=== PATIENT | female | born 1930 | race African-American/Black ===

== ENCOUNTER 2017-07-28 15:41 | Inpatient (IN) | payer OTHER ==
[~2017-07-28] VITALS: Ht 162.6 cm; Wt 86.2 kg
--- NOTE | ~2017-07-28 | 2DMMODE ---
[facility] [address] [place] [address] 2 D/M-MODE ECHOCARDIOGRAM Name: LISSY CHANDLER Room #: 411-P ADM IN .R.#: [id number] Admission: 07/28/17 Attend Phys: En Townsend MD Discharge: Date of : 30 Date of Service: 08/04/17 1623 Report #: [id number] THIS REPORT FOR: //name// APPROVED REPORT Study performed: 08/04/2017 14:01:00 EXAM: Comprehensive 2D, Doppler, and color-flow Echocardiogram Patient Location: Bedside Room #: 411 Status: routine BSA: 1.91 HR: 88 bpm BP: 108/51 mmHg Other Information Study Quality: Fair Indications Arrhythmia Pulmonary Embolism Bradycardia 2D Dimensions LVEF(%): 47.39 (>50%) IVSd: 10.26 (7-11mm) LVOT Diam: 23.93 (18-24mm) LVDd: 50.58 mm PWd: 10.26 (7-11mm) Ascending Ao: 43.51 (22-36mm) LVDs: 38.50 (25-40mm) Aortic Root: 39.31 mm IVC: 19.00 mm Canela's LVEF: 47.39 % Aortic Valve AoV Peak Yogesh.: 1.02 m/s AO Peak Gr.: 4.20 mmHg LVOT Max P.45 mmHg LVOT Max V: 0.78 m/s CARLOS ALBERTO Vmax: 3.44 cm2 AI Vmax: 3.49 m/s AI [place]: 1.57 m/s2 AI PHT: 646.31 ms Pulmonary Valve PV Peak Yogesh.: 0.75 m/s PV Peak Gr.: 2.24 mmHg Tricuspid Valve [facility] [address] [place] [address] 2 D/M-MODE ECHOCARDIOGRAM Name: LISSY CHANDLER Room #: [address] [place] [address] [place] ..#: [id number] Admission: 07/28/17 Attend Phys: En Townsend MD Discharge: Date of : 30 Date of Service: 08/04/17 1623 Report #: [id number] TR Peak Yogesh.: 3.03 m/s TR Peak Gr.: 36.65 mmHg PA Pressure: 42.00 mmHg Left Ventricle The left ventricle is normal size. There is normal left ventricular wall thickness. Left ventricular systolic function is lower limits of normal. LVEF is 50%. This study is not technically sufficient to allow evaluation of the LV diastolic function. Right Ventricle Right ventricle is at the upper limits of normal. Right ventricle appears mildly hypokinetic. Atria The left atrium size is normal. Right atrium is at the upper limits of normal. Aortic Valve The aortic valve is normal in structure. Aortic valve is calcified. Mild aortic regurgitation. There is no aortic valvular stenosis. Mitral Valve The mitral valve is normal in structure. There is no mitral valve regurgitation noted. No evidence of mitral valve stenosis. Tricuspid Valve The tricuspid valve is normal in structure. There is trace tricuspid regurgitation. The right atrial pressure is estimated at mmHg. There is moderate pulmonary hypertension. Pulmonic Valve The pulmonary valve is normal in structure. There is no pulmonic valvular regurgitation. Great Vessels There is aortic root dilation. Measuring 3.9 cm The ascending aorta is dilated. Measuring 4.4 cm IVC is normal in size and collapses >50% with inspiration. Pericardium There is no pericardial effusion. <Conclusion> The left ventricle is normal size. [facility] [address] [place] [address] 2 D/M-MODE ECHOCARDIOGRAM Name: LISSY CHANDLER Room #: 411-P ADM IN M.R.#: [id number] Admission: 07/28/17 Attend Phys: En Townsend MD Discharge: Date of : 30 Date of Service: 08/04/17 1623 Report #: [id number] LVEF is 50%. Right ventricle is at the upper limits of normal. The aortic valve is normal in structure. Aortic valve is calcified. Mild aortic regurgitation. The mitral valve is normal in structure. The tricuspid valve is normal in structure. There is trace tricuspid regurgitation. The right atrial pressure is estimated at mmHg. There is moderate pulmonary hypertension. There is aortic root dilation. Measuring 3.9 cm The ascending aorta is dilated. Measuring 4.4 cm There is no pericardial effusion. <ELECTRONICALLY SIGNED> By: Duy Ahn MD 08/04/171622 22 22 Duy Ahn MD /INF
--- NOTE | ~2017-07-28 | HC ---
[facility] [place] [address] CONSULTATION Name: LISSY CHANDLER Room #: [facility] ADM IN M.R.#: [id number] Admission: 07/28/17 Attend Phys: En Townsend MD Discharge: Date of : 30 Report #: [id number] THIS REPORT FOR: //name// CC: En Townsend MD ____ ____ DATE OF SERVICE: 08/03/2017 REFERRING PROVIDER: En Townsend MD. REASON FOR CONSULTATION: Lung mass and pulmonary embolism. HISTORY OF PRESENT ILLNESS: Our group was asked to evaluate the patient in consultation while hospitalized at [facility] by Dr. Townsend. The patient is unable to give any history, somnolent, but arousable. Denies any pain or discomfort, but we were asked to evaluate for the above findings. The patient initially presented from her correction facility at [facility] for what appeared to be increasing weakness and falls. In the Emergency Department on admission here on 07/28/2017, was noted to have some rhabdomyolysis and urinary tract infection. This has been treated. Was also noted to be hypercalcemic during this hospital stay. Yesterday, he was noted to have some ongoing hypoxemia and subsequently underwent a CT scan of the chest, PE protocol, which revealed multiple pulmonary emboli and a 4-cm left upper lobe mass. We were asked to further evaluate. The patient unable to give any further history, but denies any chest pain or dyspnea at this time. No cough or congestion. No known history of pulmonary malignancy. The patient is unable to give any further history. Further history taken from discussion with nursing and review of records. ALLERGIES: INCLUDE ADHESIVE TAPE, CODEINE, PENICILLIN, PROCAINE, AND SULFA. OUTPATIENT MEDICATIONS: Included Aricept, folic acid, hydrochlorothiazide, Synthroid, Namenda, potassium, prednisolone eye drop, Zyprexa, latanoprost, Cosopt, brimonidine. PAST MEDICAL HISTORY: 1. Hypertension. 2. Osteoarthritis. 3. Glaucoma. 4. Legal blindness. 5. Dementia. 6. Depression. 7. Hypothyroidism. SOCIAL HISTORY: Currently lives in [facility]. Otherwise unobtainable. [facility] [address] [place] [address] CONSULTATION Name: LISSY CHANDLER Room #: [address] [place] [address] [facility].#: [id number] Admission: 07/28/17 Attend Phys: En Townsend MD Discharge: Date of : 30 Report #: [id number] FAMILY HISTORY: Unobtainable due to her current status. REVIEW OF SYSTEMS: Except as described in HPI, really cannot obtain from the patient at this time. PHYSICAL EXAMINATION: VITAL SIGNS: Afebrile, pulse 50s, respiratory rate 20, blood pressure 102/63, oxygen saturation 99% on 2 liters nasal cannula. GENERAL: This is an obese, elderly female, somnolent, but arousable, no distress. ENT: Unable to assess. The patient is not cooperative with opening mouth. NECK: Supple, no lymphadenopathy. LUNGS: Essentially clear, but diminished. CARDIOVASCULAR: Heart regular. No murmurs appreciated. ABDOMEN: Soft, nontender, no masses, no hepatosplenomegaly. EXTREMITIES: Without edema. LABORATORY DATA: CT scan of the chest as described in HPI. CBC within normal limits. Chemistry profile normal except for calcium of 10.4 and elevated ionized calcium is 6.5. CPK was normal on 07/30/2017. IMPRESSION: 1. Pulmonary embolism. Given the possibility of malignancy usually in the face of malignant process, would recommend enoxaparin long-term or use of a novel oral anticoagulant that is not warfarin, suggested Pradaxa. May consider further workup including lower extremity venous Dopplers. If anticoagulation is not a good option in this patient, could consider IVC filter. 2. Lung mass, worrisome for malignant process. Given the patient's hypercalcemia, would consider possibility of hypercalcemia associated with malignancy and consider tracking a parathyroid like hormone level. Also consider MRI of the brain that may further assist with evaluation prognosis. Oncology consultation noted. 3. Dementia. 4. General debilitation. 5. Hypercalcemia. 6. Urinary tract infection. SUGGESTIONS: As above. Continue Lovenox for now. We will check lower extremity venous Dopplers. Would not biopsy lesions further at this time, but will check an arterial blood gas to see if somnolence associated with hypercapnia. [facility] [address] [place] [address] CONSULTATION Name: LISSY CHANDLER Room #: 411-P ADM IN M.R.#: [id number] Admission: 07/28/17 Attend Phys: En Townsend MD Discharge: Date of : 30 Report #: [id number] Thank you for requesting our suggestions. By: [id number] Mitchell Neely MD /tricia
--- NOTE | ~2017-07-28 | EKG ---
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
[2017-07-28 15:42] VITALS: BP 128/89
[2017-07-28 16:13] LABS: HEMATOCRIT 49.3 % (37.0-47.0); HEMOGLOBIN 15.5 gm/dL (12.0-15.0); MCH 25.6 pg (26.0-34.0); MCHC 31.5 g/dL (28.0-37.0); MCV 81.3 fL (80.0-100.0); PLATELET COUNT 209 thou/uL (150-400); RBC 6.07 mil/uL (4.20-5.00); RDW 16.2 % (10.5-14.5); WBC 14.8 thou/uL (4.0-11.0)
[2017-07-28 16:14] LABS: MANUAL DIFF YES
[2017-07-28 16:26] LABS: CALCIUM 11.7 mg/dL (8.5-10.1); CREATININE 1.1 mg/dL (0.6-1.0); POTASSIUM 4.1 mmol/L (3.5-5.1)
[2017-07-28 17:17] LABS: URINE BILIRUBIN 1+ (Negative); URINE BLOOD 3+ (Negative); URINE COLOR YELLOW; URINE GLUCOSE-RANDOM* NEGATIVE (Negative); URINE KETONES TRACE (Negative); URINE NITRITE NEGATIVE (Negative); URINE PROTEIN (DIPSTICK) 3+ (Negative); URINE SPECIFIC GRAVITY >= 1.030 (1.003-1.035)
[2017-07-28 17:18] LABS: ABSOLUTE NEUTROPHILS 12.4 thou/uL (1.4-8.2); TOTAL CELL COUNT 100
[2017-07-28 17:19] LABS: ANISOCYTOSIS 1+
[2017-07-28 17:20] LABS: ICTOTEST (BILI CONFIRMATORY) Negative (Negative)
[2017-07-28 17:29] LABS: BACTERIA >30 Many /HPF (None Seen); CASTS None Seen /LPF (None Seen); CRYSTALS None Seen /LPF (None Seen); SQUAMOUS 0-3 Few /LPF (0-3); URINE RBC 0-2 Rare /HPF (0-2); URINE WBC 0-5 Rare /HPF (0-5)
[2017-07-28 19:50] VITALS: BP 127/71
[2017-07-29] MEDS ORDERED: ARICEPT10 M1 PO (00:31)
[2017-07-29] MEDS ORDERED: FOLIC ACID1 MG PO (01:29)
[2017-07-29] MEDS ORDERED: HYDROCHLOROTHIA25 M2 PO (01:31)
[2017-07-29] MEDS ORDERED: NAMENDA 10 MG T10 MG PO (01:32)
[2017-07-29] MEDS ORDERED: SYNTHROID50 MCG PO (01:32)
[2017-07-29] MEDS ORDERED: POTASSIUM20 PO (01:33)
[2017-07-29] MEDS ORDERED: ZYPREXA2.5 MG PO (01:35)
[2017-07-29] MEDS ORDERED: PRED FORTE 1% EY5 M1 OPHTHALMIC (01:37)
[2017-07-29] MEDS ORDERED: XALATAN2.5 ML OPHTHALMIC (01:38)
[2017-07-29] MEDS ORDERED: COSOPT OCUMETER10 M1 OPHTHALMIC (01:40)
[2017-07-29] MEDS ORDERED: ALPHAGAN P5 ML OPHTHALMIC (01:42)
[2017-07-29 03:59] VITALS: BP 125/71
[2017-07-29 07:20] VITALS: BP 113/59
[2017-07-29 16:18] VITALS: BP 130/57
[2017-07-29 20:45] VITALS: BP 125/67
[2017-07-30 05:35] VITALS: BP 140/75
[2017-07-30 08:00] VITALS: BP 124/83
[2017-07-30 16:36] VITALS: BP 126/78
[2017-07-30 16:48] LABS: HEMATOCRIT 39.7 % (37.0-47.0); MCH 25.9 pg (26.0-34.0); MCV 80.9 fL (80.0-100.0); RBC 4.91 mil/uL (4.20-5.00); RDW 15.9 % (10.5-14.5); WBC 8.2 thou/uL (4.0-11.0)
[2017-07-30 16:51] LABS: HEMOGLOBIN 12.7 gm/dL (12.0-15.0)
[2017-07-30 17:11] LABS: CALCIUM 10.3 mg/dL (8.5-10.1); CREATININE 0.9 mg/dL (0.6-1.0); POTASSIUM 4.3 mmol/L (3.5-5.1)
[2017-07-30 17:51] LABS: ALBUMIN 2.2 g/dL (3.4-5.0); DIRECT BILIRUBIN 0.2 mg/dL (<0.1-0.3); TOTAL BILIRUBIN 0.4 mg/dL (<0.1-1.0); TOTAL PROTEIN 6.1 g/dL (6.4-8.2)
[2017-07-30 21:02] VITALS: BP 142/76
[2017-07-31 04:10] VITALS: BP 147/90
[2017-07-31 09:03] VITALS: BP 170/82
[2017-07-31 10:16] LABS: CALCIUM 10.2 mg/dL (8.5-10.1); CREATININE 0.7 mg/dL (0.6-1.0); PHOSPHORUS 2.3 mg/dL (2.5-4.9)
[2017-07-31 16:00] VITALS: BP 126/69
[2017-07-31 16:12] LABS: IgA 432 mg/dL (64-422); IgG 1096 mg/dL (700-1600); IgM 64 mg/dL (26-217)
[2017-07-31 17:13] LABS: CALCIUM IONIZED* 6.5 mg/dL (4.5-5.6)
[2017-07-31 19:24] VITALS: BP 131/90
[2017-08-01 00:06] LABS: 25-HYDROXY TOTAL 14.7 ng/mL (30.0-100.0)
[2017-08-01 00:21] VITALS: BP 156/88
[2017-08-01 05:43] VITALS: BP 110/67
[2017-08-01 08:58] VITALS: BP 140/89
[2017-08-01 11:42] VITALS: BP 147/85
[2017-08-01 15:56] VITALS: BP 156/86
[2017-08-01 20:00] VITALS: BP 154/86
[2017-08-02 04:00] VITALS: BP 167/98
[2017-08-02 08:25] VITALS: BP 117/82
[2017-08-02 09:46] LABS: CALCIUM 10.4 mg/dL (8.5-10.1); CREATININE 0.8 mg/dL (0.6-1.0); POTASSIUM 3.9 mmol/L (3.5-5.1)
[2017-08-02] MEDS ORDERED: ROCEPHIN 11 GM/1001 IV (12:39)
[2017-08-02] MEDS ORDERED: TOPROL XL25 MG PO (12:40)
[2017-08-02] MEDS ORDERED: SENSIPAR 30 MG30 M1 PO (12:42)
[2017-08-02 16:21] VITALS: BP 118/84
[2017-08-02 20:05] VITALS: BP 100/39
[2017-08-02 20:30] VITALS: BP 123/80
[2017-08-03 05:30] VITALS: BP 102/63
[2017-08-03 08:00] VITALS: BP 102/66
[2017-08-03 08:14] LABS: A/G RATIO 0.7 (0.7-1.7); ALBUMIN 2.3 g/dL (2.9-4.4); ALPHA 1 0.3 g/dL (0.0-0.4); ALPHA 2 0.9 g/dL (0.4-1.0); BETA 1.1 g/dL (0.7-1.3); GAMMA 1.1 g/dL (0.4-1.8); M-SPIKE Not Observed g/dL (Not Observed)
[2017-08-03 14:15] LABS: KAPPA FREE LIGHT CHAINS 33.4 mg/L (3.3-19.4); KAPPA/LAMBDA RATIO 1.09 (0.26-1.65); LAMBDA FREE LIGHT CHAINS 30.7 mg/L (5.7-26.3)
[2017-08-03 16:09] LABS: UEP MONOCLONAL Not Observed % (Not Observed); URINE PROTEIN (MG/DL) 107.5 mg/dL (Not Estab.)
[2017-08-03 16:22] VITALS: BP 110/69
[2017-08-03 16:30] VITALS: BP 129/60
[2017-08-03 17:00] VITALS: BP 108/56
[2017-08-03 20:00] VITALS: BP 123/66
[2017-08-04 04:00] VITALS: BP 105/53
[2017-08-04 08:00] VITALS: BP 83/63
[2017-08-04 08:20] VITALS: BP 105/51
[2017-08-04 16:00] VITALS: BP 131/79
[2017-08-04 17:48] LABS: HEMATOCRIT 37.5 % (37.0-47.0); HEMOGLOBIN 11.7 gm/dL (12.0-15.0); MCH 25.2 pg (26.0-34.0); MCHC 31.3 g/dL (28.0-37.0); MCV 80.3 fL (80.0-100.0); RBC 4.66 mil/uL (4.20-5.00); RDW 16.1 % (10.5-14.5); WBC 6.2 thou/uL (4.0-11.0)
[2017-08-04 17:57] LABS: CALCIUM 10.6 mg/dL (8.5-10.1); CREATININE 0.8 mg/dL (0.6-1.0)
[2017-08-04 20:36] VITALS: BP 123/80
[2017-08-05 00:20] VITALS: BP 121/77
[2017-08-05 04:04] VITALS: BP 116/68
[2017-08-05 06:58] LABS: HEMATOCRIT 32.8 % (37.0-47.0); HEMOGLOBIN 10.4 gm/dL (12.0-15.0); MCH 25.5 pg (26.0-34.0); MCHC 31.8 g/dL (28.0-37.0); MCV 80.3 fL (80.0-100.0); RBC 4.08 mil/uL (4.20-5.00); RDW 15.7 % (10.5-14.5); WBC 5.7 thou/uL (4.0-11.0)
[2017-08-05 07:12] LABS: CALCIUM 9.2 mg/dL (8.5-10.1); CREATININE 0.7 mg/dL (0.6-1.0); TROPONIN-I 0.11 ng/mL (<0.04-0.07)
[2017-08-05 07:15] LABS: POTASSIUM 6.2 mmol/L (3.5-5.1)
[2017-08-05 08:33] VITALS: BP 150/86
[2017-08-05 15:41] VITALS: BP 138/81
[2017-08-05 20:00] VITALS: BP 155/78
[2017-08-06 04:00] VITALS: BP 153/70
[2017-08-06 08:08] LABS: CALCIUM 10.3 mg/dL (8.5-10.1); CREATININE 0.8 mg/dL (0.6-1.0); POTASSIUM 3.5 mmol/L (3.5-5.1)
[2017-08-06 08:22] VITALS: BP 111/58; BP 153/69
[2017-08-06 19:52] VITALS: BP 164/101
[2017-08-07 04:40] VITALS: BP 159/83
[2017-08-07] MEDS ORDERED: ANCEF 1GM1 GM/50 M2 IV (09:41)
[2017-08-07] MEDS ORDERED: ATIVAN0.5 MG PO (09:41)
[2017-08-07] MEDS ORDERED: ENOXAPARIN80 MG/0.1 SUBQ (09:41)
[2017-08-07] MEDS ORDERED: HYDROCODON-ACE1 EAC7 PO (09:41)
[2017-08-07] MEDS ORDERED: NORVASC2.5 MG PO (09:43)
[2017-08-07] MEDS ORDERED: PROBIOTIC1 EAC1 PO (09:49)
[2017-08-07 09:50] VITALS: BP 132/84
== END 2017-08-07 14:27 | DRG 871 ==
LOC: ER 15:41 → 4N 17:50 → EROBS 17:50 → 4N 19:49
PROVIDERS: Internal Medicine; Internal Medicine Hematology & Oncology; Physician Assistant
PROC: 02HV33Z Insertion of Infusion Device into Superior Vena Cava, Percutaneous Approach (ICD-10-PCS; principal; 2017-08-04)
DX: A41.1 Sepsis due to other specified staphylococcus (principal); E43 Unspecified severe protein-calorie malnutrition; I26.99 Other pulmonary embolism without acute cor pulmonale; J18.9 Pneumonia, unspecified organism; N39.0 Urinary tract infection, site not specified; F02.81 Dementia in other diseases classified elsewhere, unspecified severity, with behavioral disturbance; I10 Essential (primary) hypertension; M19.90 Unspecified osteoarthritis, unspecified site; H40.9 Unspecified glaucoma; H54.8 Legal blindness, as defined in USA; E03.9 Hypothyroidism, unspecified; F32.9 Major depressive disorder, single episode, unspecified; F29 Unspecified psychosis not due to a substance or known physiological condition; T79.6XXA Traumatic ischemia of muscle, initial encounter; W18.39XA Other fall on same level, initial encounter; G30.9 Alzheimer's disease, unspecified; E55.9 Vitamin D deficiency, unspecified; E21.3 Hyperparathyroidism, unspecified; E87.5 Hyperkalemia; I95.9 Hypotension, unspecified; Z28.21 Immunization not carried out because of patient refusal; Z88.6 Allergy status to analgesic agent; Z88.0 Allergy status to penicillin; Z88.2 Allergy status to sulfonamides; Z88.8 Allergy status to other drugs, medicaments and biological substances; Z91.09 Other allergy status, other than to drugs and biological substances; Z68.32 Body mass index [BMI] 32.0-32.9, adult
CPT/HCPCS: 10790; 27000

== ENCOUNTER → 2017-11-27 | Outpatient (CLI) | payer OTHER ==
[~2017-11-27] MED LIST: ALPHAGAN P5 ML OPHTHALMIC; ANCEF 1GM1 GM/50 M2 IV; ARICEPT10 M1 PO; ATIVAN0.5 MG PO; COSOPT OCUMETER10 M1 OPHTHALMIC; ENOXAPARIN80 MG/0.1 SUBQ; FOLIC ACID1 MG PO; HYDROCHLOROTHIA25 M2 PO; HYDROCODON-ACE1 EAC7 PO; NAMENDA 10 MG T10 MG PO; NORVASC2.5 MG PO; POTASSIUM20 PO; PRED FORTE 1% EY5 M1 OPHTHALMIC; PROBIOTIC1 EAC1 PO; ROCEPHIN 11 GM/1001 IV; SENSIPAR 30 MG30 M1 PO; SYNTHROID50 MCG PO; TOPROL XL25 MG PO; XALATAN2.5 ML OPHTHALMIC; ZYPREXA2.5 MG PO
== END ==
LOC: CAT 10:03
DX: I70.0 Atherosclerosis of aorta (principal); J98.11 Atelectasis; R91.8 Other nonspecific abnormal finding of lung field

== ENCOUNTER → 2017-12-25 | Outpatient (CLI) | payer OTHER ==
--- NOTE | ~2017-12-25 | S ---
[facility] [place] [place] [address] SURGICAL PATH RPT PROCEDURE Name: LISSY CHANDLER [id number] Admission: 12/25/17 Date of : 30 Discharge: Report #: [id number] Path Case #: [id number] PATHOLOGY REPORT COLLECTION DATE: 12/25/2017 RECEIVED DATE: 12/25/2017 SUBMITTING PHYS: Dr. Mitchell Neely OTHER PHYS: Dr. Kathryn Yates SPECIMEN(S) RECEIVED: A.LLL biopsy * * * * * * * * * * * * FINAL DIAGNOSIS: Lung, left lower lobe, biopsy: - Benign alveolated lung parenchyma with mild chronic inflammation. - Negative for malignancy. COMMENT: The concurrent cytology specimen ([id number]) showed the same. Please refer to a separate report for complete details. (IUV:pit; 12/26/2017) PATHOLOGIST: Neisha Nair M.D. REPORT ELECTRONICALLY SIGNED BY: Neisha Nair M.D. DATE/TIME: 12/26/2017 17:18 * * * * * * * * * * * * GROSS PATHOLOGY: The specimen is received in formalin, labeled "Lissy Chandler and biopsy LLL", are several minute fragments of love-brown soft tissue the aggregate measuring 0.1 cm in greatest dimension, entirely submitted in A1. (SWS; 12/25/2017) CLINICAL HISTORY: Mass INITIAL CPT CODE(S): A; 04410 Professional services performed by [facility] at [facility] [address], [place] [address] Technical services performed by [facility] at [address] [place] [address] [address] [place] [address] SURGICAL PATH RPT PROCEDURE Name: LISSY CHANDLER Room #: REG [place] June#: [id number] Admission: 12/25/17 Date of : 30 Discharge: Report #: [id number] Path Case #: [id number] [address]. [facility] [address] [place] [address] [address] PHONE: [phone] DIRECTOR: Ricky Maciel M.D. * * * END OF REPORT * * *
--- NOTE | ~2017-12-25 | CNG ---
[facility] [place] [address] CYTO-NONGYN REPORT PROCEDURE Name: LISSY CHANDLER Room #: [facility] [place] Shaylee#: [id number] Admission: 12/25/17 Date of : 30 Discharge: Report #: [id number] Path Case #: [id number] CYTOPATHOLOGY REPORT COLLECTION DATE: 12/25/2017 RECEIVED DATE: 12/25/2017 SUBMITTING PHYS: Dr. Mitchell Neely OTHER PHYS: Dr. Kathryn Yates CLINICAL HISTORY: Mass Left lung, biopsy [id number] (please see separate report) SPECIMEN(S) RECEIVED: A.Bronchoalveolar lavage B.Brushing, LLL * * * * * * * * * * * * FINAL DIAGNOSIS: A. Lung, Bronchoalveolar lavage: - No malignant cells identified. - Bronchial epithelial cells, hyperplasia, alveolar macrophages, and squamous cells present. B. Lung, LLL, Brushing: - No malignant cells identified. - Bronchial epithelial cells, alveolar macrophages, and squamous cells present in a background of blood. PATHOLOGIST: Neisha Nair M.D. REPORT ELECTRONICALLY SIGNED BY: Neisha Nair M.D. DATE/TIME: 12/26/2017 15:01 * * * * * * * * * * * * GROSS PATHOLOGY: A. Bronchoalveolar lavage: The specimen is submitted unfixed, labeled "Hardy Lissy L". Received by the Cytology Department is 15 mL of cloudy pink fluid. One ThinPrep slide was prepared. B. Brushing, LLL: The specimen is labeled "Lissy Chandler" and consists of a brush tip in fixative and three fixed slides. One ThinPrep slide was prepared. (mm 12.25.2017) FLORIST MANAGER(S): ZULEYKA [facility]htar[facility]IAC INITIAL CPT CODE(S): A; 25035 B; 35420 Professional services performed by [facility] at [address] , [place] [address] Technical services performed by [facility] at [address] [place] [id number] CYTO-NONGYN REPORT PROCEDURE Name: LISSY CHANDLER [facility] [id number] Admission: 12/25/17 Date of : 30 Discharge: Report #: [id number] Path Case #: [id number] [address]. [facility] [address] [place] [address] PHONE: [phone] DIRECTOR: Ricky Maciel M.D. * * * END OF REPORT * * *
--- NOTE | ~2017-12-25 | P ---
[facility] [place] [address] PROCEDURE REPORT Name: LISSY CHANDLER Room #: REG [facility]#: [id number] Admission: 12/25/17 Attend Phys: Mitchell Neely MD Discharge: Date of : 30 Report #: [id number] THIS REPORT FOR: //name// CC: Kathryn Yates Mitchell Townsend MD DATE OF SERVICE: 12/25/2017 PRIMARY CARE PROVIDER: En Townsend MD PROCEDURE: Bronchoscopy note. REASON FOR INDICATION: Persistent left lower lobe infiltrate. ASA classification class 2. PROCEDURE NOTATION: After discussing risks, benefits of planned procedure with the patient, she desired to proceed. After obtaining informed consent, she was brought to laborer beam house 3 where she was placed on continuous cardiopulmonary monitoring and supplemental oxygen, then given 4% lidocaine nebulized to anesthetize the upper respiratory tract. Once accomplished, she received conscious sedation, a total of 2 mg of Versed were titrated during the procedure to provide adequate sedation. Once accomplished, bronchoscope was passed through an oral bite block until the vocal cords were visualized. Lidocaine 1% was instilled in the vocal cords for topical anesthesia. Bronchoscope was then passed in the trachea, 1% lidocaine was instilled in the tracheobronchial tree bilaterally to provide topical anesthesia. Once complete, airways were surveyed. FINDINGS: Mainstem, lobar, segmental and subsegmental bronchi were explored. All appeared patent with the exception of the superior segment of left lower lobe which had some collapsibility suggestive of bronchomalacia. There are no significant endobronchial lesions noted. Several cytologic brushings, some transbronchial biopsies were obtained in this area. Bronchial lavage was also performed in this area at the end of procedure. The patient tolerated well with no noted complications with minimal blood loss. IMPRESSION: Persistent infiltrative changes in superior segment of left lower lobe, which may be due to persistent slowly resolving pneumonia or atelectasis related to underlying bronchomalacia, status post bronchoscopy with specimen collections as described above. [address] [address] PROCEDURE REPORT Name: LISSY CHANDLER Room #: [facility]#: [id number] Admission: 12/25/17 Attend Phys: Mitchell Neely MD Discharge: Date of : 30 Report #: [id number] PLAN: Await pathology and microbiologic tests. Followup is planned in our office. <ELECTRONICALLY SIGNED> By: Mitchell Neely MD 01/03/18 1233 0930 1009 Mitchell Neely MD /nt
== END | disposition home or self-care (01) ==
LOC: CATH 06:52
DX: J98.4 Other disorders of lung (principal); Z88.0 Allergy status to penicillin; Z88.2 Allergy status to sulfonamides; Z88.6 Allergy status to analgesic agent; Z87.440 Personal history of urinary (tract) infections; Z79.899 Other long term (current) drug therapy

== ENCOUNTER → 2018-02-12 | Outpatient (CLI) | payer OTHER | LOC: RAD 11:34 | DX: R91.8 Other nonspecific abnormal finding of lung field (principal); M47.894 Other spondylosis, thoracic region; E78.5 Hyperlipidemia, unspecified; E11.9 Type 2 diabetes mellitus without complications; N20.0 Calculus of kidney ==

== ENCOUNTER → 2019-05-16 | Outpatient (CLI) | payer OTHER ==
--- NOTE | 2019-05-16 12:42 | 2DMMODE ---
[facility] [place] [address] 2 D/M-MODE ECHOCARDIOGRAM Name: RAMESHLISSY L Room #: [facility]#: [id number] ������������� Admission: 05/16/19 ������������� Attend Phys: Jordi Talavera MD Discharge: ��� ������������� ��� Date of : 30 Date of Service: 05/16/19 1242 �� Report #: [id number] �������� ��������������������������������������������[id number] THIS REPORT FOR: //name// APPROVED REPORT Study performed: 05/16/2019 10:47:05 EXAM: Comprehensive 2D, Doppler, and color-flow Echocardiogram Patient Location: Out-Patient Room #: Echo Lab 1 Status: routine BSA: 1.91 HR: 83 bpm BP: 152/78 mmHg Rhythm: NSR/ Arrhythmia Other Information Study Quality: Good Indications Dyspnea, Shortness of Breath. 2D Dimensions RVDd: 22.65 mm IVSd: 11.99 (7-11mm) LVOT Diam: 21.88 (18-24mm) LVDd: 48.31 mm PWd: 11.84 (7-11mm) Ascending Ao: 45.17 (22-36mm) LVDs: 35.93 (25-40mm) Aortic Root: 41.16 mm Volumes Left Atrial Volume (Systole) Single Plane 4CH: 38.00 mL Single Plane 2CH: 78.46 mL LA ESV Index: 34.00 mL/m2 Aortic Valve AoV Peak Yogesh.: 1.23 m/s AO Peak Gr.: 6.05 mmHg LVOT Max P.80 mmHg LVOT Max V: 0.97 m/s CARLOS ALBERTO Vmax: 2.98 cm2 AI Vmax: 3.62 m/s AI [place]: 2.44 m/s2 AI PHT: 464.54 ms Mitral Valve [facility] [address] [place] [address] 2 D/M-MODE ECHOCARDIOGRAM Name: LISSY CHANDLER Room #: [facility]#: [id number] ������������� Admission: 05/16/19 ������������� Attend Phys: Jordi Talavera MD Discharge: ��� ������������� ��� Date of : 30 Date of Service: 05/16/19 1242 �� Report #: [id number] �������� ��������������������������������������������[id number] E/A Ratio: 0.4 MV Decel. Time: 106.39 ms MV E Max Yogesh.: 0.39 m/s MV A Yogesh.: 1.09 m/s MV PHT: 30.85 ms IVRT: 62.28 ms Pulmonary Valve PV Peak Yogesh.: 0.73 m/s PV Peak Gr.: 2.13 mmHg Tricuspid Valve TR Peak Yogesh.: 3.21 m/s TR Peak Gr.: 41.14 mmHg Left Ventricle The left ventricle is normal size. Mild concentric left ventricular hypertrophy. Left ventricular systolic function is borderline. LVEF is 50-55%. Mild diastolic dysfunction is present (impaired relaxation pattern). Right Ventricle The right ventricle is normal size. Right ventricle is moderately hypokinetic. Atria Left atrium is at the upper limits of normal. Right atrium is at the upper limits of normal. Aortic Valve The aortic valve is normal in structure. Aortic valve is calcified. Mild to moderate aortic regurgitation. There is no aortic valvular stenosis. Mitral Valve The mitral valve is normal in structure. Mild mitral regurgitation. No evidence of mitral valve stenosis. Tricuspid Valve The tricuspid valve is normal in structure. Mild tricuspid regurgitation. Estimated PAP is 41mmHg + RAP. Pulmonic Valve The pulmonary valve is normal in structure. Trace pulmonic regurgitation. Great Vessels [facility] [address] [address] 2 D/M-MODE ECHOCARDIOGRAM Name: LISSY CHANDLER Cee Room #: [facility]#: [id number] ������������� Admission: 05/16/19 ������������� Attend Phys: Jordi Talavera MD Discharge: ��� ������������� ��� Date of : 30 Date of Service: 05/16/19 1242 �� Report #: [id number] �������� ��������������������������������������������[id number] Aortic root is dilated at 4.1 cm Ascending aorta is dilated at 4.5 cm. IVC is not well visualized. Pericardium There is no pericardial effusion. <Conclusion> The left ventricle is normal size. Mild concentric left ventricular hypertrophy. Left ventricular systolic function is borderline. Mild diastolic dysfunction is present (impaired relaxation pattern). The right ventricle is normal size. Left atrium is at the upper limits of normal. Aortic valve is calcified. Mild to moderate aortic regurgitation. Mild mitral regurgitation. Mild tricuspid regurgitation. Estimated PAP is 41mmHg + RAP. ��������������������������������������������� <ELECTRONICALLY SIGNED> ���������������������������������������� By: Jordi Talavera MD ��������������������������������������������� 05/16/19 1242 41 41 Jordi Talavera MD /INF
== END ==
LOC: CARD 08:09 → NUC 08:09
DX: I08.3 Combined rheumatic disorders of mitral, aortic and tricuspid valves (principal); I10 Essential (primary) hypertension; Z87.891 Personal history of nicotine dependence; Z88.0 Allergy status to penicillin; Z88.5 Allergy status to narcotic agent